=== PATIENT | female | born 1985 | race Caucasian/White ===

== ENCOUNTER 2017-04-03 16:27 | Inpatient (IN) | payer OTHER ==
[~2017-04-03] VITALS: Ht 167.6 cm; Wt 62.9 kg
[2017-04-03 18:50] LABS: EOSINOPHIL (%) 0.2 % (0-5); HEMATOCRIT 32.1 % (36.0-46.0); IMMATURE GRANULOCYTE (%) 0.4 % (0.0-0.7); INSTRUMENT ABS NEUTROPHIL CT 6.3 K/uL; LYMPHOCYTE COUNT 1.8 K/uL (1.0-2.8); MCH 29.6 PG (29.0-34.0); MCHC 34.3 G/DL (30.0-36.0); MCV 86.3 FL (83-99); MEAN PLAT.VOLUME 9.5 uM^3 (9.5-12.4); MONOCYTE (%) 4.2 % (3-12); MONOCYTE COUNT 0.4 K/uL (0-0.8); NEUTROPHIL (%) 73.8 % (45-76); NEUTROPHIL COUNT 6.3 K/uL (1.8-6.4); PLATELET COUNT 239 K/uL (156-360); RBC DIS.WIDTH-CV 12.5 % (11.8-14.6); RBC DIS.WIDTH-SD 39.5 % (39-53); RED BLOOD COUNT 3.72 M/uL (3.80-5.20); WHITE BLOOD COUNT 8.6 K/uL (4.1-10.2)
[2017-04-03 18:57] LABS: PROTHROMBIN TIME 10.3 (9.2-11.2)
[2017-04-03 19:06] LABS: CHLORIDE 108 mEq/L (99-109); POTASSIUM 3.9 mEq/L (3.7-5.4); SODIUM 138 mEq/L (136-147)
[2017-04-03 19:08] LABS: GLUCOSE 92 mg/dL (70-99)
[2017-04-03 19:09] LABS: ANION GAP 8 MEQ/L (2-14)
[2017-04-03 19:13] LABS: UREA NITROGEN (BUN) 6 mg/dL (9-23)
[2017-04-03 19:15] LABS: GFR ESTIMATE (CALCULATED) > 59 mL/min/
[2017-04-03 20:21] LABS: SERUM ETHYL ALCOHOL 89 mg/dL
[2017-04-03] MEDS ORDERED: LAMICTAL25 MG PO (20:27)
[2017-04-04 01:00] VITALS: BP 108/57
[2017-04-04 03:56] VITALS: BP 114/65
[2017-04-04 06:35] LABS: HEMATOCRIT 31.3 % (36.0-46.0); MCV 88.4 FL (83-99)
[2017-04-04 07:01] LABS: ANION GAP 7 MEQ/L (2-14); CHLORIDE 110 MEQ/L (99-109); GFR ESTIMATE (CALCULATED) > 59 mL/min/; GLUCOSE 169 mg/dL (70-99); POTASSIUM 3.9 MEQ/L (3.7-5.4); SAMPLE HEMOLYSIS CHECK 0; SAMPLE ICTERIC CHECK 0; SAMPLE LIPEMIA CHECK 0; SODIUM 141 MEQ/L (136-147); UREA NITROGEN (BUN) 6 mg/dL (9-23)
[2017-04-04 07:40] VITALS: BP 115/62
[2017-04-04 12:06] VITALS: BP 124/68
[2017-04-04 15:32] VITALS: BP 122/60
[2017-04-04 23:35] VITALS: BP 97/56
[2017-04-05 08:05] VITALS: BP 114/55
[2017-04-05] MEDS ORDERED: HYDROCODON-ACE1 EAC7 PO (11:47)
== END 2017-04-05 14:44 | disposition home or self-care (01) | DRG 494 ==
LOC: EME 16:27 → SDC 22:04 → 3EAST 04-04 00:55
PROVIDERS: Emergency Medicine; Orthopaedic Surgery Sports Medicine
PROC: 0QSG04Z Reposition Right Tibia with Internal Fixation Device, Open Approach (ICD-10-PCS; principal; 2017-04-04)
DX: S82.301B Unspecified fracture of lower end of right tibia, initial encounter for open fracture type I or II (principal); I10 Essential (primary) hypertension; F32.9 Major depressive disorder, single episode, unspecified; F41.9 Anxiety disorder, unspecified; F17.210 Nicotine dependence, cigarettes, uncomplicated; V86.59XA Driver of other special all-terrain or other off-road motor vehicle injured in nontraffic accident, initial encounter; M89.9 Disorder of bone, unspecified
CPT/HCPCS: 73590; 73610; 73630; 73700; 76000; 80048; 82306; 85014; 85018; 85025; 85610; 99281; 99285; C1713; G0480; J0330; J0690; J1100; J1170; J1580; J1650; J2175; J2250; J2270; J2405; J2765; J3010; J7030; J7050